=== PATIENT | female | born 1960 | race Two or more races ===

== ENCOUNTER 2021-05-05 08:00 | Outpatient (CLI) | payer OTHER | END 2021-05-05 08:30 | disposition home or self-care (01) | LOC: PPH VACUNA 08:00 | PROVIDERS: ATTEND Emergency Medicine Pediatric Emergency Medicine | DX: Z23 Encounter for immunization (principal) ==

== ENCOUNTER 2021-09-30 09:32 | Outpatient (CLI) | payer OTHER | END 2021-09-30 16:30 | disposition home or self-care (01) | LOC: SONOGRAMA 09:32 | PROVIDERS: ATTEND Orthopaedic Surgery | DX: M25.512 Pain in left shoulder (principal) ==

== ENCOUNTER 2021-11-25 08:00 | Outpatient (CLI) | payer OTHER | END 2021-11-25 08:30 | disposition home or self-care (01) | LOC: PPH VACUNA 08:00 | PROVIDERS: ATTEND Emergency Medicine Pediatric Emergency Medicine | DX: Z23 Encounter for immunization (principal) ==

== ENCOUNTER 2021-12-17 06:54 | Day surgery (SDC) | payer OTHER ==
[~2021-12-17 06:54] MED LIST: CRESTOR5 MG PO; CYMBALTA20 MG PO; GABAPEN PO; HYDROCHLOROTHIA25 MG PO; SYNTHROID125 MCG PO; VITAMIN B122500 MCG PO; VITAMIN D PO
== END 2021-12-17 13:55 | disposition home or self-care (01) ==
LOC: CIR.AMB 06:54
PROVIDERS: ATTEND Orthopaedic Surgery
DX: M75.121 Complete rotator cuff tear or rupture of right shoulder, not specified as traumatic (principal); M24.111 Other articular cartilage disorders, right shoulder; M75.21 Bicipital tendinitis, right shoulder; I10 Essential (primary) hypertension; E78.00 Pure hypercholesterolemia, unspecified; J45.909 Unspecified asthma, uncomplicated; Z87.891 Personal history of nicotine dependence; M19.90 Unspecified osteoarthritis, unspecified site; Z85.850 Personal history of malignant neoplasm of thyroid

== ENCOUNTER 2023-09-20 12:22 | Outpatient (CLI) | payer OTHER | END 2023-09-20 12:51 | disposition home or self-care (01) | LOC: RAD 12:22 | DX: M76.62 Achilles tendinitis, left leg (principal); M77.32 Calcaneal spur, left foot; M15.0 Primary generalized (osteo)arthritis ==

== ENCOUNTER 2024-05-30 08:18 | Outpatient (CLI) | payer OTHER | END 2024-05-30 08:30 | disposition home or self-care (01) | LOC: MAMO-SONO 08:18 | PROVIDERS: ATTEND Obstetrics & Gynecology | DX: N60.11 Diffuse cystic mastopathy of right breast (principal) ==